=== PATIENT | male | born 1960 | race Two or more races ===

== ENCOUNTER 2020-07-25 11:28 | Outpatient (REF) | payer OTHER, SELFPAY ==
--- NOTE | ~2020-07-25 | XR_ITS ---
EXAMINATION: XR HAND, RIGHT CLINICAL INFORMATION: Pain in right and COMPARISON: None TECHNIQUE: PA, lateral, and oblique views of the right hand. FINDINGS: The bones and soft tissues are normal. No fracture. Alignment is anatomic. Joint spaces are maintained. No erosions or soft tissue calcifications. XR/XR hand RT min 3V IMPRESSION: Unremarkable right hand exam
== END 2020-07-25 11:29 | disposition home or self-care (01) ==
LOC: HO.HOSX 11:28
PROVIDERS: Visit Provider Orthopaedic Surgery
DX: S60.351A Superficial foreign body of right thumb, initial encounter (principal); L08.9 Local infection of the skin and subcutaneous tissue, unspecified
CPT/HCPCS: 73130; 99202

== ENCOUNTER 2020-07-27 11:51 | Day surgery (SDC) | payer OTHER, SELFPAY ==
[2020-07-27 12:45] VITALS: BMI 33.6
--- NOTE | 2020-07-27 13:53 | P.OP_ITS ---
Operative Note Operative Note Date of Service: 07/27/20 Narrative: Operative Note Preop diagnosis: 1. Right thumb foreign body 2. Right thumb infection Postop diagnosis: Same Procedure: 1. Right thumb removal of foreign body 2. Right thumb I&D Surgeon: Ghada Lee MD Anesthesia: local block using 1% lidocaine with epinephrine Findings: 5mm piece of wood, purulent drainage EBL: Less than 5 mL Tourniquet time: None Specimens: None Complications: None Disposition: Brought to recovery room in stable condition Plan: Follow-up for 7-10 days for wound check and suture removal Indications: The patient is 60 years old, with a right thumb foreign body a nd infection. The risks and benefits of operative treatment including but not limited to risk of damage to blood vessels, nerves, tendons, infection, persistent pain, persistent symptoms, recurrence or possible need for additional surgery were discussed with the patient and the patient wishes to proceed with surgery. Procedure: Once consent was obtained a local block was performed in the preop area using a combination of 1% lidocaine with epinephrine. The patient was then brought back to the operating suite and placed on the operative table in supine position. A tourniquet was applied to the proximal aspect of the right upper extremity and the limb was prepped and draped in a standard surgical fashion. Tourniquet was not inflated during the case. Once assured that we had a good block, I made a 7 mm longitudinal incision centered over the apex of the infection at the tip of the right thumb. The incision was made through the skin to the subcutaneous tissue. We immediately had drainage of creamy yellow purulent material. This was cultured. The area was debrided of nonviable tissue using a 15. Blade and tenotomy scissors. We also identified a 5 mm long wooden splinter and removed this and placed it on the back table. At this point the wound was again irrigated with normal saline. Sterile dressing was then applied. The patient appears to have tolerated the procedure well and with no complications. All digits were well vascularized at the conclusion of the case.
--- NOTE | 2020-07-27 13:53 | MHC.SHP ---
Pre-Procedural Eval Section B Chief Complaint: Local Skin infection Allergies: Allergies Allergy/AdvReac Type Severity Reaction Status Date / Time No Known Allergies Allergy Verified 07/27/20 12:59 Plan I have reviewed the history and physical and performed a pertinent physical examination on my patient. No changes have occurred unless specified.
[2020-07-27 16:29] VITALS: BP 173/81; PULSE 77; RESP 20; O2SAT 97
== END 2020-07-27 16:46 | disposition home or self-care (01) ==
PROVIDERS: PCP Family Medicine; Visit Provider Orthopaedic Surgery
PROC: (CPT 10120; principal; 2020-07-27 13:40)
DX: S60.351A Superficial foreign body of right thumb, initial encounter (principal); L08.9 Local infection of the skin and subcutaneous tissue, unspecified; W45.8XXA Other foreign body or object entering through skin, initial encounter; W22.8XXA Striking against or struck by other objects, initial encounter; Y93.89 Activity, other specified; Y92.9 Unspecified place or not applicable; Y99.8 Other external cause status; I10 Essential (primary) hypertension; E11.9 Type 2 diabetes mellitus without complications; Z79.4 Long term (current) use of insulin; Z79.899 Other long term (current) drug therapy
CPT/HCPCS: 10120; 11000; 87071; 87205

== ENCOUNTER → 2020-08-02 09:37 | Outpatient (BNVA) | payer OTHER, SELFPAY | PROVIDERS: PCP Family Medicine; Visit Provider Orthopaedic Surgery ==